=== PATIENT | male | born 1960 | race Two or more races ===

== ENCOUNTER 2020-10-17 18:13 | Emergency (ER) | payer OTHER ==
[~2020-10-17] VITALS: Ht 190.5 cm; Wt 90.7 kg
[~2020-10-17 18:13] MED LIST: HYZAAR 50-12.1 UDTAB; N; VISTARIL50 MG PO
[2020-10-17] MEDS ORDERED: LEVOTHYROXINE25 MCG (18:51)
[2020-10-17] MEDS ORDERED: SIMVASTATIN20 MG (18:52)
== END 2020-10-17 20:54 | disposition home or self-care (01) ==
LOC: ER 18:13
DX: I16.0 Hypertensive urgency (principal); I10 Essential (primary) hypertension